=== PATIENT | male | born 1935 | race Caucasian/White ===

== ENCOUNTER 2019-11-05 13:47 | Outpatient (CLI) | payer MEDICARE, OTHER, SELFPAY ==
--- NOTE | 2019-11-05 14:24 | USCV_ITS ---
JamieJohn medina Age: 84 Gender: M : 1935 Exam Date: 11/05/2019 14:30 Ordering Phys: Tj Fitzgerald Technologist: Cristine Granados Exam Location: [facility] – [place] Indication: STENOSIS Risk Factors: Previous Vascular Surgery: Right Brachial BP: / Left Brachial BP: / Right Left Velocity (cm/s) Spectral Plaque Velocity (cm/s) Spectral Plaque Syst/Diast Broadening Syst/Diast Broadening 52.00/ 7.00 Prox CCA 58.30 / 11.90 48.90/ 14.80 Mid CCA 38.80 / 7.50 53.60/ 14.80 Distal CCA 50.10 / 15.70 52.00/ 12.50 Prox ICA 43.30 / 9.90 96.40/ 27.90 Mid ICA 76.00 / 22.00 109.90/23.10 Distal ICA 66.00 / 22.00 149.00 ECA 78.30 2.25 ICA/CCA 1.96 Antegrade Vertebral Antegrade 19.10/ 4.10 cm/s 26.50/ 11.00 cm/s Tri Subclavian Bi 62.60 78.60 FINDINGS Comparison:. 05/17/19. Velocity in the right CCA/ICA stent is not as elevated as the prior exam. Stenosis near 50%. Mild evation of left ICA velocity with no change. Mild diffuse atherosclerosis bilateral carotid arteries. CONCLUSIONS Prior stent graft right CCA/ICA with less velocity elevation, right ICA stenosis < 50%. Left ICA stenosis < 50%. No change. Dr. Zayda Chueng DO (Electronically Signed) Final Date: 05 November 2019 16:07 S
== END 2019-11-05 13:48 | disposition home or self-care (01) ==
LOC: RAD 13:52
PROVIDERS: PCP Family Medicine; Visit Provider Neurological Surgery
DX: I65.23 Occlusion and stenosis of bilateral carotid arteries
CPT/HCPCS: 93880

== ENCOUNTER 2020-02-10 18:56 | Emergency (ER) | payer MEDICARE, OTHER, SELFPAY ==
[2020-02-10 19:29] VITALS: BP 128/70; PULSE 88; RESP 14; TEMP 37.6; O2SAT 97; BMI 22.1
--- NOTE | 2020-02-10 19:37 | XRR_ITS ---
PROCEDURE INFORMATION: Exam: XR Chest, 1 View Exam date and time: 02/10/2020 7:58 PM Age: 84 years old Clinical indication: Patient HX: C/O weakness for a couple of weeks TECHNIQUE: Imaging protocol: XR of the chest Views: 1 view. COMPARISON: CR Chest 1 [place] [id number] 12/08/2018 11:04 AM FINDINGS: Lungs: Scattered granulomas are seen in the right perihilar and lower lobe stable since prior No consolidation. Pleural space: Unremarkable. No pleural effusion. No pneumothorax. Heart/Mediastinum: Unremarkable. No cardiomegaly. Bones/joints: Metallic sternotomy wires are in place. XR/XR chest 1V portable [id number] IMPRESSION: 1. No acute findings. 2. Scattered granulomas are present in the right lung 3. Metallic sternotomy wires are in place for
--- NOTE | 2020-02-10 19:38 | ECG_ITS ---
[facility] Test Date: 2020-02-10 Pat Name: John Vann Department: Room: Gender: Male College Athlete: : 1935 Requested By: Jolanta Yip Order Number: [id number] Jeremiah MD: Federico Felix M.D. Measurements Intervals [place] Rate: 85 P: 41 [place]: 175 QRS: 111 QRSD: 137 T: 3 QT: 391 QTc: 467 Interpretive Statements SINUS RHYTHM INDETERMINATE AXIS RIGHT BUNDLE BRANCH BLOCK [120+ ms QRS DURATION, UPRIGHT V1, 40+ ms S IN I/aVL/V4/V5/V6] LEFT POSTERIOR FASCICULAR BLOCK [QRS AXIS > 109, INFERIOR Q] Compared to ECG 12/08/2018 17:42:52 Indeterminate axis now present Left posterior fascicular block now present Electronically Signed On 02-11-2020 20:52:02 CDT by Federico Felix M.D. [id number]
[2020-02-10 19:56] LABS: Basophils % 0.6 %; Eosinophils % 0.2 %; Hematocrit 47.1 % (42.0-52.0); Hemoglobin 15.7 g/dL (11.7-16.6); Lymphocytes # 0.6 10^3/uL (0.8-4.8); Lymphocytes % 9.8 %; Mean Corpuscular HGB Conc 33.3 g/dL (30.0-36.0); Mean Corpuscular Hemoglobin 32.8 pg (28.0-34.0); Mean Corpuscular Volume 98.3 fL (80-94); Mean Platelet Volume 8.8 fL (7.4-10.4); Monocytes # 0.8 10^3/uL (0.2-0.9); Neutrophils # 4.74 10^3/uL (1.8-7.7); Neutrophils % 76.1 %; Nucleated Red Blood Cells % 0 %; Platelet Count 130 10^3/cmm (130-400); Red Blood Count 4.79 10^6/uL (4.1-5.3); Red Cell Distribution Width 12.8 % (12.1-15.1); White Blood Count 6.2 10^3/uL (4.0-10.0)
[2020-02-10 20:07] LABS: INR 1.02 (0.8-1.2); Ketone (Acetest) Serum Negative (Negative)
--- NOTE | 2020-02-10 20:09 | W.ED.WEAKNES ---
HPI - Weakness General: Chief complaint: Weakness Stated complaint: fell/weakness/disoriented Time Seen by Provider: 02/10/20 19:36 Source: patient and family Mode of arrival: wheelchair Limitations: no limitations History of Present Illness: HPI Narrative: Patient is a nice 84-year-old male here with a family member for complaints of intermittent bouts of weakness. Patient tells me earlier today he was in the bathroom when his legs became very weak causing him to slide down onto the floor and states afterwards he could not get back up. He states he has had 2 similar episodes over the past few weeks. Family member states today she noticed when patient was ambulating his gait seemed to be off and could not walk in a straight line. 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 Patient states when he is not having these episodes he otherwise feels fine. He is not complaining of numbness, tingling to his extremities. He has no headache, visual changes, bowel/bladder incontinence. He has no pain currently. Associated symptoms: Denies chest pain, chills, dysuria, fever(s), headache(s), nausea, syncope or vomiting Review of Systems Const: Denies: fever(s), chills, body aches, change in appetite, change in weight, fatigue or malaise Eyes: Denies: change in vision, blurry vision, photophobia, floaters or seeing flashes ENMT: Denies: odynophagia Card: Denies: chest pain, palpitations, irregular heart rhythm, lightheadedness, syncope or dyspnea on exertion Resp: Denies: dyspnea, productive cough or pain on inspiration GI: Denies: abdominal pain, nausea, vomiting, heartburn or diarrhea : Denies: flank pain, difficulty urinating, dysuria, urinary frequency, urinary urgency or urinary hesitancy Musc: Denies: neck pain, back pain, extremity pain, extremity swelling, joint pain or joint swelling Skin/Breast: Denies: rash Neuro: Reports: weakness in extremities (intermittent bilateral LE); Denies: headache(s), numbness in extremities, sensory changes, frequent falls, dizziness, vertigo, behavioral changes, Slurred speech present or seizure-like activity Physical Exam Const: COMMON NORMALS: no acute distress, average body habitus, patient oriented x3, no limitations, healthy appearing, alert and well nourished ORIENTATION/CONSCIOUSNESS: Yes oriented to person, Yes oriented to place and Yes oriented to time HENMT: COMMON NORMALS: normocephalic and atraumatic HEAD & SCALP: normocephalic and atraumatic Resp: COMMON NORMALS: normal respiratory effort and clear to auscultation bilaterally AUSCULTATION: clear to auscultation bilaterally Cardio: COMMON NORMALS: regular rate and regular rhythm RATE: regular rate RHYTHM: regular rhythm GI: COMMON NORMALS: Normal to inspection, nondistended, normoactive bowel sounds present, Soft to palpation, non-tender, No hepatosplenomegaly present and no masses PALPATION: Yes Soft to palpation and Yes No hepatosplenomegaly present Extremity: COMMON NORMALS: normal to inspection and full ROM GENERAL: Yes normal exam except as noted Neuro: JACQUELINE COMA SCALE: document GCS findings Jacqueline coma scale eye opening: Spontaneous Jacqueline coma scale verbal response: Orientated Jacqueline coma scale motor response: Obey commands Jefferson coma scale total score: 15 COMMON NORMALS: patient oriented x3, moves all extremities, no focal motor deficits and no sensory deficits noted SENSORIUM/ORIENTATION: Yes alert, Yes oriented to person, Yes oriented to place and Yes oriented to time CRANIAL NERVES: Yes CN normal except as noted and Yes other (L mouth and eye drooping-normal since previous CVA; L eye blindness) SPEECH: speech normal Skin: COMMON NORMALS: no rashes or lesions noted GENERAL SKIN EXAM: no rashes or lesions noted Course Vital Signs: Vital signs: Vital Signs Temperature 99.6 F 02/10/20 19:29 Pulse Rate 82 02/10/20 21:59 Respiratory Rate 20 H 02/10/20 21:59 Blood Pressure 141/74 02/10/20 21:59 Pulse Oximetry 94 02/10/20 21:59 MDM - Weakness MDM Narrative: Medical decision making narrative: Patient here with a complaint of 3 episodes of weakness that has spanned out over the past few weeks. Patient currently with a normal neurological examination. Again he does have chronic deficits of left-sided mouth and eye drooping from his previous CVA. Patient is wanting to go home. Family states he does have an appointment with Dr. Hood this week. Patient has no pain currently. He has no evidence for infection on his labs. Remainder of his work-up is non-concerning. Head CT is normal. Patient was able to get up and ambulate and was able to walk in a straight line however did require some mild assistance. Daughter in the room will be staying with patient to prevent further falls. I do not see a reason at this time for hospitalization. Case was discussed with Dr. Myrick who agrees with assessment and plan for patient. Return to ED precautions given. Lab Data: Labs: Lab Results 02/10/20 02/10/20 02/10/20 Range/Units 19:50 19:50 19:50 WBC 6.2 (4.0-10.0) 10^3/ uL RBC 4.79 (4.1-5.3) 10^6/u L Hgb 15.7 (11.7-16.6) g/dL Hct 47.1 (42.0-52.0) % MCV 98.3 H (80-94) fL MCH 32.8 (28.0-34.0) pg MCHC 33.3 (30.0-36.0) g/dL RDW 12.8 (12.1-15.1) % Plt Count 130 (130-400) 10^3/c mm MPV 8.8 (7.4-10.4) fL Neut % (Auto) 76.1 % Lymph % (Auto) 9.8 % [place] % (Auto) 13.0 % Eos % (Auto) 0.2 % Baso % (Auto) 0.6 % Neut # (Auto) 4.74 (1.8-7.7) 10^3/u L Lymph # (Auto) 0.6 L (0.8-4.8) 10^3/u L [place] # (Auto) 0.8 (0.2-0.9) 10^3/u L Eos # (Auto) 0.0 (0.0-0.8) 10^3/u L Baso # (Auto) 0.0 (0.0-0.1) 10^3/u L Nucleated RBC % (a uto) 0 % Nucleated RBCs # 0.0 /100WBC PT (12.1-14.9) SECO NDS INR (0.8-1.2) Sodium 136 (136-145) mmol/L Potassium 4.2 (3.5-5.1) mmol/L Chloride 102 (98-107) mmol/L Carbon Dioxide 24 (22-29) mmol/L Anion Gap 14.2 (5-19) BUN 20 (8-23) mg/dL Creatinine 0.9 (0.7-1.2) mg/dL GFR Calculation Not Reportable Glucose 128 H (65-115) mg/dL Calculated Osmolal ity 280 L (285-295) mOsm/k g Lactic Acid 2.1 (0.5-2.2) mmol/L Lactic Acid (Sepsi s) (0.5-2.2) mmol/L Calcium 8.8 (8.5-10.5) mg/dL Magnesium 1.9 (1.7-2.3) mg/dL Total Bilirubin 0.4 (0.15-1.2) mg/dL AST 27 (0-40) U/L ALT 19 (0-41) U/L Alkaline Phosphata se 71 (40-130) IU/L Creatine Kinase 53 (39-308) U/L Troponin T Baselin e (0-15) ng/L Troponin T 120 Min white [place] (0-15) ng/L Delta Troponin T (0-10) ABS# Total Protein 6.7 (6.6-8.7) g/dL Albumin 4.3 (3.5-5.2) g/dL Globulin 2.4 (1.3-4.6) g/dL Lipase 23 (13-60) U/L Urine Color (Yellow) Urine Appearance (CLEAR) Urine pH (5-7) Ur Specific Gravit y (1.005-1.030) Urine Protein (Negative) Urine Glucose (UA) (Normal) Urine Ketones (Negative) Urine Blood (Negative) Urine Nitrate (Negative) Urine Bilirubin (Negative) Urine Urobilinogen (Negative) mg/dL Ur Leukocyte Shereen ase (Negative) Serum Ketones Negative (Negative) Influenza Type A A g (Negative) Influenza Type B A g (Negative) 02/10/20 02/10/20 02/10/20 Range/Units 19:50 19:50 21:04 WBC (4.0-10.0) 10^3/ uL RBC (4.1-5.3) 10^6/u L Hgb (11.7-16.6) g/dL Hct (42.0-52.0) % MCV (80-94) fL MCH (28.0-34.0) pg MCHC (30.0-36.0) g/dL RDW (12.1-15.1) % Plt Count (130-400) 10^3/c mm MPV (7.4-10.4) fL Neut % (Auto) % Lymph % (Auto) % [place] % (Auto) % Eos % (Auto) % Baso % (Auto) % Neut # (Auto) (1.8-7.7) 10^3/u L Lymph # (Auto) (0.8-4.8) 10^3/u L [place] # (Auto) (0.2-0.9) 10^3/u L Eos # (Auto) (0.0-0.8) 10^3/u L Baso # (Auto) (0.0-0.1) 10^3/u L Nucleated RBC % (a uto) % Nucleated RBCs # /100WBC PT 13.70 (12.1-14.9) SECO NDS INR 1.02 (0.8-1.2) Sodium (136-145) mmol/L Potassium (3.5-5.1) mmol/L Chloride (98-107) mmol/L Carbon Dioxide (22-29) mmol/L Anion Gap (5-19) BUN (8-23) mg/dL Creatinine (0.7-1.2) mg/dL GFR Calculation Glucose (65-115) mg/dL Calculated Osmolal ity (285-295) mOsm/k g Lactic Acid (0.5-2.2) mmol/L Lactic Acid (Sepsi s) (0.5-2.2) mmol/L Calcium (8.5-10.5) mg/dL Magnesium (1.7-2.3) mg/dL Total Bilirubin (0.15-1.2) mg/dL AST (0-40) U/L ALT (0-41) U/L Alkaline Phosphata se (40-130) IU/L Creatine Kinase (39-308) U/L Troponin T Baselin e 27 H (0-15) ng/L Troponin T 120 Min [place] (0-15) ng/L Delta Troponin T (0-10) ABS# Total Protein (6.6-8.7) g/dL Albumin (3.5-5.2) g/dL Globulin (1.3-4.6) g/dL Lipase (13-60) U/L Urine Color Yellow (Yellow) Urine Appearance Clear (CLEAR) Urine pH 5 (5-7) Ur Specific Gravit y 1.020 (1.005-1.030) Urine Protein Neg (Negative) Urine Glucose (UA) Norm (Normal) Urine Ketones Negative (Negative) Urine Blood Neg (Negative) Urine Nitrate Negative (Negative) Urine Bilirubin Neg (Negative) Urine Urobilinogen Norm (Negative) mg/dL Ur Leukocyte Shereen ase Negative (Negative) Serum Ketones (Negative) Influenza Type A A g (Negative) Influenza Type B A g (Negative) 02/10/20 02/10/20 02/10/20 Range/Units 21:09 22:10 22:10 WBC (4.0-10.0) 10^3/ uL RBC (4.1-5.3) 10^6/u L Hgb (11.7-16.6) g/dL Hct (42.0-52.0) % MCV (80-94) fL MCH (28.0-34.0) pg MCHC (30.0-36.0) g/dL RDW (12.1-15.1) % Plt Count (130-400) 10^3/c mm MPV (7.4-10.4) fL Neut % (Auto) % Lymph % (Auto) % [place] % (Auto) % Eos % (Auto) % Baso % (Auto) % Neut # (Auto) (1.8-7.7) 10^3/u L Lymph # (Auto) (0.8-4.8) 10^3/u L [place] # (Auto) (0.2-0.9) 10^3/u L Eos # (Auto) (0.0-0.8) 10^3/u L Baso # (Auto) (0.0-0.1) 10^3/u L Nucleated RBC % (a uto) % Nucleated RBCs # /100WBC PT (12.1-14.9) SECO NDS INR (0.8-1.2) Sodium (136-145) mmol/L Potassium (3.5-5.1) mmol/L Chloride (98-107) mmol/L Carbon Dioxide (22-29) mmol/L Anion Gap (5-19) BUN (8-23) mg/dL Creatinine (0.7-1.2) mg/dL GFR Calculation Glucose (65-115) mg/dL Calculated Osmolal ity (285-295) mOsm/k g Lactic Acid (0.5-2.2) mmol/L Lactic Acid (Sepsi s) 1.3 (0.5-2.2) mmol/L Calcium (8.5-10.5) mg/dL Magnesium (1.7-2.3) mg/dL Total Bilirubin (0.15-1.2) mg/dL AST (0-40) U/L ALT (0-41) U/L Alkaline Phosphata se (40-130) IU/L Creatine Kinase (39-308) U/L Troponin T Baselin e (0-15) ng/L Troponin T 120 Min [place] 27.10 H (0-15) ng/L Delta Troponin T 0.10 (0-10) ABS# Total Protein (6.6-8.7) g/dL Albumin (3.5-5.2) g/dL Globulin (1.3-4.6) g/dL Lipase (13-60) U/L Urine Color (Yellow) Urine Appearance (CLEAR) Urine pH (5-7) Ur Specific Gravit y (1.005-1.030) Urine Protein (Negative) Urine Glucose (UA) (Normal) Urine Ketones (Negative) Urine Blood (Negative) Urine Nitrate (Negative) Urine Bilirubin (Negative) Urine Urobilinogen (Negative) mg/dL Ur Leukocyte Shereen ase (Negative) Serum Ketones (Negative) Influenza Type A A g Negative (Negative) Influenza Type B A g Negative (Negative) Imaging Data^: CXR: Radiologist's impression: [address] [address] XRay Report Signed Patient: John Vann Unit #: [id number] : 1935 Age/Sex: 84 / M ADM Date: 02/10/20 Loc: ER Room/Bed: Attending Dr: Ordering Provider/Ordering MD: Jolanta Myrick DO Date of Service: 02/10/20 Procedure(s): XR chest 1V portable [id number] Accession Number(s): [id number] Report Number: [id number] PROCEDURE INFORMATION: Exam: XR Chest, 1 View Exam date and time: 02/10/2020 7:58 PM Age: 84 years old Clinical indication: Patient HX: C/O weakness for a couple of weeks TECHNIQUE: Imaging protocol: XR of the chest Views: 1 view. COMPARISON: CR Chest 1 [place] [id number] 12/08/2018 11:04 AM FINDINGS: Lungs: Scattered granulomas are seen in the right perihilar and lower lobe stable since prior No consolidation. Pleural space: Unremarkable. No pleural effusion. No pneumothorax. Heart/Mediastinum: Unremarkable. No cardiomegaly. Bones/joints: Metallic sternotomy wires are in place. XR/XR chest 1V portable [id number] IMPRESSION: 1. No acute findings. 2. Scattered granulomas are present in the right lung 3. Metallic sternotomy wires are in place for Dictated By: Tc Kerns Signed By: Tc Kerns Signed Date/Time: 02/10/202040 DD/ 39 CT Head: Radiologist's impression: [place] [address] CT Scan Report Signed Patient: John Vann #: [id number] : 08/22/1936Acct#:[id number] Age/Sex: 84 / MADM Date: 02/10/20 Loc: ERRoom/Bed: Attending Dr: Ordering Provider/Ordering MD: Mila Flores Date of Service: 02/10/20 Procedure(s): CT head wo con* [id number] Accession Number(s): [id number] Report Number: [id number] PROCEDURE INFORMATION: Exam: CT Head Without Contrast Exam date and time: 02/10/2020 8:10 PM Age: 84 years old Clinical indication: Weakness, extremity; Bilateral; Patient HX: HX of CVA C/O weakness and unsteady gait x 2 weeks; Additional info: Weakness, gait abnormality TECHNIQUE: Imaging protocol: Computed tomography of the head without contrast. Radiation optimization: All CT scans at this facility use at least one of these dose optimization techniques: automated exposure control; mA and/or kV adjustment per patient size (includes targeted exams where dose is matched to clinical indication); or iterative reconstruction. COMPARISON: CT head wo con* [id number] 12/08/2018 8:50 AM RADIATION DOSE METRICS: Total DLP (mGy-cm): 874.3 FINDINGS: Brain: There is volume loss and periventricular low density compatible with chronic small vessel disease changes. There is no acute hemorrhage, edema or mass effect. There is unchanged right parietal encephalomalacia. Basal ganglia lacunar infarcts are noted. Ventricles: No ventriculomegaly. Bones/joints: Unremarkable. No acute fracture. Paranasal sinuses: Visualized sinuses are unremarkable. No fluid levels. Mastoid air cells: Visualized mastoid air cells are well aerated. Soft tissues: Unremarkable. CT/CT head wo con* [id number] IMPRESSION: No acute intracranial abnormality. Radiation Dose CTDIVOL = (mGy): DLP = 874.3 (mGy-cm) Dictated By:Aleshia Ng Signed By:Hira Ng Date/Time:02/10/202051 DD/ 49 EKG Data^: EKG 1: EKG interpretation date: 02/10/20 EKG interpretation time: 21:31 Interpretation: Sinus rhythm Rate 85 RBBB No acute changes when compared to EKG performed on 11/[address] Myrick Discharge Plan Discharge Patient Disposition: Home Clinical Impression: Weakness Condition: Stable Discharge Orders: Discharge Order (Routine); Ordered 02/10/20 Ordered By: Mila Flores Referrals: Victor Manuel Melendez DO [Primary Care Provider] - Patient Instructions: Weakness (ED) Activity Restrictions/Additional Instructions: As discussed please follow-up with his primary care provider next week at his scheduled appointment. Monitor patient closely and have patient use cane/walker as needed to prevent a fall. Return to the emergency department for altered mental status, fevers, weakness/numbness/sensory changes to his face or extremities, slurred speech or any other concerns you may have. Coding Level of Care Code ED Farm [employer]anner for Chg Fwd Exam Comprehensive
[2020-02-10 20:12] LABS: Lactic Sepsis W/Reflex 2.1 mmol/L (0.5-2.2)
[2020-02-10 20:13] LABS: Troponin(5th) Baseline 27 ng/L (0-15)
[2020-02-10 20:15] LABS: Alanine Aminotransferase 19 U/L (0-41); Albumin Level 4.3 g/dL (3.5-5.2); Alkaline Phosphatase 71 IU/L (40-130); Aspartate Amino Transferase 27 U/L (0-40); Blood Urea Nitrogen 20 mg/dL (8-23); Calcium 8.8 mg/dL (8.5-10.5); Carbon Dioxide 24 mmol/L (22-29); Chloride 102 mmol/L (98-107); Creatine Phosphokinase 53 U/L (39-308); Creatinine Clr Calc Pharmacy 60.1789; Globulin 2.4 g/dL (1.3-4.6); Glucose 128 mg/dL (65-115); Lipase 23 U/L (13-60); Magnesium 1.9 mg/dL (1.7-2.3); Osmolality Calculated 280 mOsm/kg (285-295); Sodium 136 mmol/L (136-145); Total Bilirubin 0.4 mg/dL (0.15-1.2); Total Protein 6.7 g/dL (6.6-8.7)
[2020-02-10 20:17] LABS: Anion Gap 14.2 (5-19); Potassium 4.2 mmol/L (3.5-5.1)
--- NOTE | 2020-02-10 20:56 | PC.NURSE ---
ASSUMED CARE OF PT AT THIS TIME.
[2020-02-10 20:57] VITALS: BP 147/82; BP 148/84; BP 152/78; BP 161/76; PULSE 86; PULSE 87; PULSE 90; PULSE 91; RESP 16; O2SAT 95
[2020-02-10] MEDS: sodium chloride 0.9% 1,000 ML 100 ML IV (21:24)
[2020-02-10 21:37] LABS: Add Urine Microscopic? NO
[2020-02-10 21:41] LABS: Reflex Lactate Order REFLEX LACTIC ORDERD
[2020-02-10 21:47] LABS: Bilirubin Urine Neg (Negative); Blood Urine Neg (Negative); Glucose Urine UA Norm (Normal); Ketones Urine Negative (Negative); Leukocyte Esterase Urine Negative (Negative); Nitrate Urine Negative (Negative); Protein Urine Neg (Negative); Urine Appearance Clear (CLEAR); Urine Color Yellow (Yellow); Urobilinogen Urine Norm (Negative); pH Urine 5 (5-7)
[2020-02-10 21:59] VITALS: BP 141/74; PULSE 82; RESP 20; O2SAT 94
--- NOTE | 2020-02-10 22:20 | PC.NURSE ---
PT AMBULATES WITH SBA. PT WAS A LITTLE UNSTEADY ON FEET.
[2020-02-10 22:32] LABS: Influenza A by IFA Negative (Negative); Influenza B by IFA Negative (Negative)
[2020-02-10 22:46] LABS: Lactic Acid level (Lactate) 1.3 mmol/L (0.5-2.2)
[2020-02-10 22:58] VITALS: BP 140/82; PULSE 86; RESP 19; O2SAT 93
== END 2020-02-10 23:09 | disposition home or self-care (01) ==
PROVIDERS: Emergency Medicine; Emergency Provider Physician Assistant; PCP Family Medicine
DX: R53.1 Weakness (principal)
CPT/HCPCS: 12345; 36415; 70450; 71045; 80053; 81003; 82009; 82550; 83605; 83690; 83735; 84484; 85025; 85610; 87804; 93005; 96360; 96361; 99284; J7030

== ENCOUNTER 2021-11-24 13:41 | Outpatient (CLI) | payer MEDICARE, OTHER, SELFPAY ==
--- NOTE | 2021-11-24 13:54 | USCV_ITS ---
John Vann Age: 86 Gender: M : 1935 Exam Date: 11/24/2021 14:12 Ordering Phys: Tj Fitzgerald Technologist: Jason Fletcher Exam Location[place] [facility] [place]ication: CAROTID STENOSIS Risk Factors: Previous Vascular Surgery: RIGHT STENT Right Brachial BP: / Left Brachial BP: / Right Left Velocity (cm/s) Spectral Plaque Velocity (cm/s) Spectral Plaque Syst/Diast Broadening Syst/Diast Broadening 57.70/ 9.10 Prox CCA 62.30 / 12.90 39.60/ 9.60 Mid CCA 52.00 / 18.60 39.60/ 7.70 Distal CCA 48.90 / 11.70 97.40/ 17.90 Prox ICA 81.20 / 23.90 85.40/ 9.40 Mid ICA 87.20 / 22.20 49.60/ 12.80 Distal ICA 76.00 / 14.50 98.30 ECA 111.10 1.69 ICA/CCA 1.40 Antegrade Vertebral Antegrade 29.60/ 7.20 cm/s 53.80/ 12.00 cm/s Tri Subclavian 52.90 55.00 FINDINGS Comparison:. 11/05/19. No significant elevation of velocities. Right CCA to ICA stent is patent. Antegrade vertebral arteries. CONCLUSIONS Bilateral ICA stenosis less than 50%. Patent right CCA to ICA stent. Dr. Zayda Cheung DO (Electronically Signed) Final Date: 24 November 2021 15:33 S
== END 2021-11-24 13:42 | disposition home or self-care (01) ==
LOC: RAD 13:44
PROVIDERS: PCP Family Medicine; Visit Provider Neurological Surgery
DX: I65.23 Occlusion and stenosis of bilateral carotid arteries (principal)
CPT/HCPCS: 93880

== ENCOUNTER → 2022-02-25 10:19 | Outpatient (BNVA) | payer MEDICARE, OTHER, SELFPAY | PROVIDERS: PCP Family Medicine; Visit Provider Family Medicine | DX: E78.5 Hyperlipidemia, unspecified (principal); E11.9 Type 2 diabetes mellitus without complications; I10 Essential (primary) hypertension; E79.0 Hyperuricemia without signs of inflammatory arthritis and tophaceous disease; I63.9 Cerebral infarction, unspecified | CPT/HCPCS: 80053; 80061; 82607; 83036; 84550; 85025 ==

== ENCOUNTER 2022-05-06 16:44 | Emergency (ER) | payer MEDICARE, OTHER, SELFPAY ==
[2022-05-06 16:49] VITALS: BP 153/84; PULSE 91; RESP 16; TEMP 36.5; O2SAT 95; BMI 22.1
--- NOTE | 2022-05-06 17:14 | XRR_ITS ---
PROCEDURE INFORMATION: Exam: XR Lumbosacral Spine Exam date and time: 05/06/2022 5:21 PM Age: 86 years old Clinical indication: Low back pain; Additional info: Fall with back pain, HX back surgery lumbar TECHNIQUE: Imaging protocol: Radiologic exam of the lumbosacral spine. Views: 2 or 3 views. COMPARISON: No relevant prior studies available. FINDINGS: Bones/joints: Kyphoplasty material seen within the T12 vertebral body with chronic appearing moderate compression deformity. Chronic appearing mild diffuse vertebral body height loss of L1. No acute fracture. No spinal malalignment. Soft tissues: Unremarkable. XR/XR lumbar spine 2-3V* [id number] IMPRESSION: No acute findings.
--- NOTE | 2022-05-06 18:12 | ED_ITS ---
Documented by User: Evelina Fountain, EDUCATIONAL SPEECH LANGUAGE CLINICIAN-C 05/06/22 18:59 HPI - Fall General: Chief Complaint: Fall Stated Complaint: fall,SOB Time Seen by Provider: 05/06/22 17:06 History of Present Illness: Patient is in today for back pain status post fall. He reports that he fell backwards getting out of the car. He reports that he fell onto his back and felt a pop and he has significant low back pain since that time. He reports this is happened to him 2 other times and both times he had a ruptured disc. He states that he did not hit his head he did not have loss of consciousness he does not have head pain. He denies numbness or tingling in the groin, loss of bowel or bladder control, urinary symptoms. He does report pain radiating down to his right buttocks and his posterior right leg. He is able to stand and bear weight and walk although he is slow and has a limp. Associated symptoms-after fall: Denies abdominal pain, chest pain or headache(s) Review of Systems Const: Denies: fever(s) or chills Card: Denies: chest pain or palpitations Resp: Denies: dyspnea, productive cough or non-productive cough GI: Denies: abdominal pain, nausea or vomiting : Denies: flank pain, difficulty urinating or dysuria Musc: Reports: back pain; Denies: muscle weakness Neuro: Denies: headache(s), numbness in extremities or weakness in extremities Physical Exam Const: COMMON NORMALS: no acute distress, patient oriented x3 and alert Resp: COMMON NORMALS: normal respiratory effort Back/Pelvis: OTHER: Some tenderness to palpation lumbar region back with no obvious bony or soft tissue deformities, no vertebral point tenderness, no step-offs. Paraspinal muscular tension noted lumbar bilateral. Patient able to bear weight but moves slowly and family does assist him to stand. Neuro: COMMON NORMALS: patient oriented x3, CN's II-XII intact bilaterally and moves all extremities SENSORIUM/ORIENTATION: Yes alert Course Vital Signs: Vital signs: Vital Signs Temperature 97.7 F 05/06/22 16:49 Pulse Rate 91 05/06/22 16:49 Respiratory Rate 16 05/06/22 16:49 Blood Pressure 153/84 05/06/22 16:49 Pulse Oximetry 95 05/06/22 16:49 Oxygen Delivery Me thod 05/06/22 16:49 MDM - Fall Medical Decision Making Consider lumbar strain, contusion, fall, lumbar fracture X-ray lumbar spine no acute findings. Patient is given 1 dose of hydrocodone in here today to help with pain. We will send patient home with conservative treatment including alternating ice and heat, muscle relaxer as directed and as needed for muscle spasm. Advised patient and family of conservative treatment at home. Advised him of possible benefits and side effects of muscle relaxant medication including increasing risk for fall. Do not drive after taking the medication. Do not take any other medications that make you sleepy with this medication. Follow-up with your primary care provider in 1 to 2 weeks for persisting symptoms. Return to the ER as needed for any new or worsening symptoms including, but not limited to, numbness or tingling of the groin, loss of bowel or bladder control, weakness in 1 extremity. Lab Data Radiology Impressions Lumbar Spine X-Ray 05/06/22 17:14 IMPRESSION: No acute findings. Discharge Plan Discharge Patient Disposition: Home Clinical Impression: Fall, Lumbar strain Condition: Stable Prescriptions: New baclofen 10 mg tablet 5 mg PO Q8H PRN (Reason: muscle spasm) Qty: 10 0RF No Action cetirizine 10 mg tablet 10 mg PO DAILY PRN metoprolol tartrate 25 mg tablet PO famotidine 20 mg tablet PO allopurinol 300 mg tablet 150 mg PO DAILY Qty: 45 3RF metformin 500 mg tablet 500 mg PO BID Qty: 180 3RF prednisone 5 mg tablet See Rx Instructions .ROUTE .COMPLEX Qty: 30 1RF Dose Instruction: TAKE 1 TABLET BY MOUTH ONCE DAILY NEEDED FOR ARTHRITIS Rx Instructions: TAKE 1 TABLET BY MOUTH ONCE DAILY NEEDED FOR ARTHRITIS Discharge Orders: Discharge ED (Routine); Ordered 05/06/22 Ordered By: Evelina Fountain Referrals: Victor Manuel Melendez DO [Primary Care Provider] - Discharge Diet: Usual diet Discharge Activity: Increase activity as tolerated Patient Instructions: Baclofen (By mouth) Activity Restrictions/Additional Instructions: I recommend conservative treatment at home. Alternate ice and heat to affected area. Rest. Use of baclofen muscle relaxant as needed as directed for muscle spasming. Be sure that you are not taking anything else that makes you drowsy with this medication, do not drive after taking this medication. Make sure that you get up slowly and use extra caution as this medication can increase your fall risk. Follow-up with primary care provider in 1 to 2 weeks for persisting symptoms. Return to the ER as needed for any new or worsening symptoms Coding Level of Care Code ED Plant Sciences Professor for Chg Fwd Exam Expanded Problem Focused Documented by User: Chance Shaffer DO 05/07/22 06:18 HPI - Fall General: Chief Complaint: Fall Stated Complaint: fall,SOB Time Seen by Provider: 05/06/22 17:06 Course Vital Signs: Vital signs: Vital Signs Temperature 97.7 F 05/06/22 16:49 Pulse Rate 91 05/06/22 16:49 Respiratory Rate 16 05/06/22 16:49 Blood Pressure 153/84 05/06/22 16:49 Pulse Oximetry 95 05/06/22 16:49 Oxygen Delivery Me thod 05/06/22 16:49 MDM - Fall Medical Decision Making Consider lumbar strain, contusion, fall, lumbar fracture X-ray lumbar spine no acute findings. Patient is given 1 dose of hydrocodone in here today to help with pain. We will send patient home with conservative treatment including alternating ice and heat, muscle relaxer as directed and as needed for muscle spasm. Advised patient and family of conservative treatment at home. Advised him of possible benefits and side effects of muscle relaxant medication including increasing risk for fall. Do not drive after taking the medication. Do not take any other medications that make you sleepy with this medication. Follow-up with your primary care provider in 1 to 2 weeks for persisting symptoms. Return to the ER as needed for any new or worsening symptoms including, but not limited to, numbness or tingling of the groin, loss of bowel or bladder control, weakness in 1 extremity. Chart reviewed and patient discussed with midlevel. Agree with assessment and plan. Lab Data Radiology Impressions Lumbar Spine X-Ray 05/06/22 17:14 IMPRESSION: No acute findings. Discharge Plan Discharge Patient Disposition: Home Clinical Impression: Fall, Lumbar strain Condition: Stable Prescriptions: New baclofen 10 mg tablet 5 mg PO Q8H PRN (Reason: muscle spasm) Qty: 10 0RF No Action cetirizine 10 mg tablet 10 mg PO DAILY PRN metoprolol tartrate 25 mg tablet PO famotidine 20 mg tablet PO allopurinol 300 mg tablet 150 mg PO DAILY Qty: 45 3RF metformin 500 mg tablet 500 mg PO BID Qty: 180 3RF prednisone 5 mg tablet See Rx Instructions .ROUTE .COMPLEX Qty: 30 1RF Dose Instruction: TAKE 1 TABLET BY MOUTH ONCE DAILY NEEDED FOR ARTHRITIS Rx Instructions: TAKE 1 TABLET BY MOUTH ONCE DAILY NEEDED FOR ARTHRITIS Discharge Orders: Discharge ED (Routine); Ordered 05/06/22 Ordered By: Evelina Fountain Referrals: Victor Manuel Melendez DO [Primary Care Provider] - Discharge Diet: Usual diet Discharge Activity: Increase activity as tolerated Patient Instructions: Baclofen (By mouth) Activity Restrictions/Additional Instructions: I recommend conservative treatment at home. Alternate ice and heat to affected area. Rest. Use of baclofen muscle relaxant as needed as directed for muscle spasming. Be sure that you are not taking anything else that makes you drowsy with this medication, do not drive after taking this medication. Make sure that you get up slowly and use extra caution as this medication can increase your fall risk. Follow-up with primary care provider in 1 to 2 weeks for persisting symptoms. Return to the ER as needed for any new or worsening symptoms Coding Level of Care Code ED Plant Sciences Professor for Rashawn Arango Exam Expanded Problem Focused
[2022-05-06] MEDS: HYDROcodone-acetaminophen 5-325 mg Tablet 1 TAB PO (18:18)
== END 2022-05-06 18:30 | disposition home or self-care (01) ==
PROVIDERS: Emergency Provider Nurse Practitioner Family; PCP Family Medicine
DX: S39.012A Strain of muscle, fascia and tendon of lower back, initial encounter (principal); W18.30XA Fall on same level, unspecified, initial encounter; Z79.84 Long term (current) use of oral hypoglycemic drugs
CPT/HCPCS: 72100; 99283

== ENCOUNTER → 2022-05-13 11:03 | Outpatient (BNVA) | payer MEDICARE, OTHER, SELFPAY | PROVIDERS: PCP Family Medicine; Visit Provider Family Medicine | DX: N39.0 Urinary tract infection, site not specified (principal) | CPT/HCPCS: 81000 ==

== ENCOUNTER → 2022-08-03 08:42 | Outpatient (BNVA) | payer MEDICARE, OTHER, SELFPAY | PROVIDERS: PCP Family Medicine; Visit Provider Family Medicine | DX: E79.0 Hyperuricemia without signs of inflammatory arthritis and tophaceous disease (principal); E11.9 Type 2 diabetes mellitus without complications; E78.5 Hyperlipidemia, unspecified; I10 Essential (primary) hypertension | CPT/HCPCS: 80053; 80061; 83036; 84550; 85025 ==

== ENCOUNTER → 2023-02-08 14:11 | Outpatient (BNVA) | payer MEDICARE, OTHER, SELFPAY | PROVIDERS: PCP Family Medicine; Visit Provider Family Medicine | DX: E11.9 Type 2 diabetes mellitus without complications (principal); E78.5 Hyperlipidemia, unspecified; I10 Essential (primary) hypertension; I63.9 Cerebral infarction, unspecified; Z13.6 Encounter for screening for cardiovascular disorders | CPT/HCPCS: 80053; 80061; 83036 ==

== ENCOUNTER → 2023-05-09 09:02 | Outpatient (BNVA) | payer MEDICARE, OTHER, SELFPAY | PROVIDERS: PCP Family Medicine; Visit Provider Family Medicine | DX: E11.9 Type 2 diabetes mellitus without complications (principal) | CPT/HCPCS: 83036 ==

== ENCOUNTER → 2023-05-16 15:05 | Outpatient (BNVA) | payer MEDICARE, OTHER, SELFPAY | PROVIDERS: PCP Family Medicine; Visit Provider Nurse Practitioner Family | DX: R39.9 Unspecified symptoms and signs involving the genitourinary system (principal) | CPT/HCPCS: 81000; 87077; 87086; 87184 ==

== ENCOUNTER → 2023-05-31 12:03 | Outpatient (BNVA) | payer MEDICARE, OTHER, SELFPAY | PROVIDERS: PCP Family Medicine; Visit Provider Family Medicine | DX: N39.0 Urinary tract infection, site not specified (principal) | CPT/HCPCS: 81000 ==

== ENCOUNTER → 2023-08-29 10:17 | Outpatient (BNVA) | payer MEDICARE, OTHER, SELFPAY | PROVIDERS: PCP Family Medicine; Visit Provider Family Medicine | DX: I10 Essential (primary) hypertension (principal); E78.5 Hyperlipidemia, unspecified; E11.9 Type 2 diabetes mellitus without complications; E79.0 Hyperuricemia without signs of inflammatory arthritis and tophaceous disease; M19.90 Unspecified osteoarthritis, unspecified site; Z13.6 Encounter for screening for cardiovascular disorders | CPT/HCPCS: 80053; 80061; 83036; 84550 ==

== ENCOUNTER → 2023-11-28 12:26 | Outpatient (BNVA) | payer MEDICARE, OTHER, SELFPAY | PROVIDERS: PCP Family Medicine; Visit Provider Family Medicine | DX: E11.9 Type 2 diabetes mellitus without complications (principal); I10 Essential (primary) hypertension; E78.5 Hyperlipidemia, unspecified; E79.0 Hyperuricemia without signs of inflammatory arthritis and tophaceous disease; Z13.6 Encounter for screening for cardiovascular disorders; M19.90 Unspecified osteoarthritis, unspecified site | CPT/HCPCS: 80053; 80061; 83036; 84550 ==

== ENCOUNTER → 2024-03-23 11:44 | Outpatient (BNVA) | payer MEDICARE, OTHER, SELFPAY | PROVIDERS: PCP Family Medicine; Visit Provider Family Medicine | DX: E11.9 Type 2 diabetes mellitus without complications (principal); E78.5 Hyperlipidemia, unspecified; I63.9 Cerebral infarction, unspecified; S72.002A Fracture of unspecified part of neck of left femur, initial encounter for closed fracture; I10 Essential (primary) hypertension; X58.XXXA Exposure to other specified factors, initial encounter | CPT/HCPCS: 80053; 80061; 83036 ==

== ENCOUNTER → 2024-06-25 09:06 | Outpatient (BNVA) | payer MEDICARE, OTHER, SELFPAY | PROVIDERS: PCP Family Medicine; Visit Provider Family Medicine | DX: I10 Essential (primary) hypertension (principal); E78.5 Hyperlipidemia, unspecified; E11.9 Type 2 diabetes mellitus without complications; E79.0 Hyperuricemia without signs of inflammatory arthritis and tophaceous disease; M19.90 Unspecified osteoarthritis, unspecified site | CPT/HCPCS: 80053; 80061; 83036; 84550 ==

== ENCOUNTER → 2024-12-20 12:49 | Outpatient (BNVA) | payer MEDICARE, OTHER, SELFPAY | PROVIDERS: PCP Family Medicine; Visit Provider Family Medicine | DX: I10 Essential (primary) hypertension (principal); E78.5 Hyperlipidemia, unspecified; E11.9 Type 2 diabetes mellitus without complications; E79.0 Hyperuricemia without signs of inflammatory arthritis and tophaceous disease; I63.9 Cerebral infarction, unspecified; M19.90 Unspecified osteoarthritis, unspecified site | CPT/HCPCS: 80053; 80061; 82607; 83036; 84550; 85025 ==